=== PATIENT | female | born 1980 | race Caucasian/White ===

== ENCOUNTER 2017-12-13 22:52 | Observation (INO) | payer SELFPAY ==
[2017-12-13] MEDS ORDERED: EPINEPHRINE INJ/PF 1 MG/1 ML AMPULE ONE (22:56)
[2017-12-13] MEDS ORDERED: RACEPINEPHRINE HCL 2.25% NEB 0.5 ML AMPUL NEB ONE ×2 (22:59→23:05)
[2017-12-13] MEDS ORDERED: METHYLPREDNISOLONE INJ 125 MG/2 ML SDV ONE (23:01)
[2017-12-13] MEDS ORDERED: IPRATROPIUM/ALBUTEROL 0.5-2.5 MG/3 ML AMPUL NEB ONE ×2 (23:01→23:05)
[2017-12-13] MEDS ORDERED: FAMOTIDINE INJ/PF 20 MG/2 ML SDV IV ONE ×2 (23:01→23:03)
[2017-12-13] MEDS ORDERED: DIPHENHYDRAMINE HCL 50 MG/ML VIAL ONE (23:02)
[2017-12-13] MEDS ORDERED: METHYLPREDNISOLONE INJ 125 MG/2 ML SDV IV ONE (23:03)
[2017-12-13] MEDS ORDERED: EPINEPHRINE INJ/PF 1 MG/1 ML AMPULE IM ONE (23:03)
--- NOTE | 2017-12-13 23:03 | ER Document Report ---
ED General - General Mode of Arrival: Wheelchair Information source: Patient TRAVEL OUTSIDE OF THE [place] IN LAST 30 DAYS: No <BRADFORD DAVILA - Last Filed: 12/14/17 01:02> <ROLA LOYOLA - Last Filed: 12/14/17 01:22> - General Stated Complaint: ALLERGIC REACTION/RASH Time Seen by Provider: 12/13/17 23:03 Notes: Patient is a 37 year old female presenting to the emergency department due to an allergic reaction. Patient states she was at a restaurant [employer] where she ate Tilapia and a small piece of flounder. She states approximately 15 minutes prior to arrival she became itchy, her throat began to swell and she had difficulty swallowing. She states she has never had a reaction to eating Tilapia before. Patient denies a history of COPD or asthma. (BRADFORD DAVILA) - Related Data Allergies/Adverse Reactions: No Known Allergies Allergy (Verified 09/26/11 15:06) Past Medical History - General Information source: Patient - Social History Smoking Status: Current Every Day Smoker Cigarette use (# per day): Yes Chew tobacco use (# tins/day): No Smoking Education Provided: No Frequency of alcohol use: Occasional Family History: Reviewed & Not Pertinent - Immunizations Hx Diphtheria, Pertussis, Tetanus Vaccination: Yes <BRADFORD DAVILA - Last Filed: 12/14/17 01:02> Review of Systems - Review of Systems Constitutional: No symptoms reported EENT: No symptoms reported Cardiovascular: No symptoms reported Respiratory: See HPI Gastrointestinal: No symptoms reported Genitourinary: No symptoms reported Female Genitourinary: No symptoms reported Musculoskeletal: No symptoms reported Skin: No symptoms reported Hematologic/Lymphatic: No symptoms reported Neurological/Psychological: No symptoms reported -: Yes All other systems reviewed and negative <BRADFORD DAVIAL - Last Filed: 12/14/17 01:02> Physical Exam <BRADFORD DAVILA - Last Filed: 12/14/17 01:02> <ROLA LOYOLA - Last Filed: 12/14/17 01:22> - Notes Notes: GENERAL: Alert, interacts well. Severe distress. HEAD: Normocephalic, atraumatic. EYES: Pupils equal, round, and reactive to light. Extraocular movements intact. ENT: Oral mucosa moist, tongue midline. Uvula and soft palate edematous. NECK: Full range of motion. Supple. Trachea midline. LUNGS: Wheezing. Tahcypneic. HEART: Regular rate and rhythm. No murmurs, gallops, or rubs. ABDOMEN: Soft, non-tender. Non-distended. Bowel sounds present in all 4 quadrants. EXTREMITIES: Moves all 4 extremities spontaneously. No edema, radial and dorsalis pedis pulses 2/4 bilaterally. No cyanosis. NEUROLOGICAL: Alert and oriented x3. Normal speech. PSYCH: Normal affect, normal mood. SKIN: Warm, flushed, urticaria. (BRADFORD DAVILA) Course - Laboratory Result Diagrams: 12/13/17 23:30 12/13/17 23:30 <BRADFORD DAVILA - Last Filed: 12/14/17 01:02> - Laboratory Result Diagrams: 12/13/17 23:30 12/13/17 23:30 - Diagnostic Test Radiology reviewed: Reports reviewed <ROLA LOYOLA - Last Filed: 12/14/17 01:22> - Re-evaluation Re-evalutation: 12/13/17 23:18 Speech and urticaria improving, still with edema of OP. 12/14/17 00:02 FLushing resloved. OP improved slightly. 12/14/17 00:36 Improving. 12/14/17 01:00 Patient is much improved but still with some swelling of her oropharynx. When she falls asleep oxygenation is 92%. Given that patient has had persistent symptoms despite epinephrine and medications, and it is 3 hours out from her allergic reaction, we will keep her for observation to ensure full recovery. Patient and family are agreeable to this plan. Stable at the time of admission to the hospital service. (ROLA LOYOLA) - Laboratory Laboratory results interpreted by me: 12/13/17 12/13/17 23:30 23:30 Seg Neuts % (Manual) 40 L Lymphocytes % (Manual) 55 H Potassium 3.3 L Glucose 127 H Critical Care Note - Critical Care Note Total time excluding time spent on procedures (mins): 60 - Evaluation and management of anaphylactic reaction with multiple re-evaluations, administration of medications, consultation with hospitalist, counseling patient and family <ROLA LOYOLA - Last Filed: 12/14/17 01:22> Discharge <BRADFORD DAVILA - Last Filed: 12/14/17 01:02> - Discharge Admitting Provider: [place] [facility] Admitted: Telemetry <ROLA LOYOLA - Last Filed: 12/14/17 01:22> - Discharge Clinical Impression: Anaphylactic reaction Qualifiers: Encounter type: initial encounter Qualified Code(s): T78.2XXA - Anaphylactic shock, unspecified, initial encounter Condition: Stable Disposition: ADMITTED OBSERVATION Scribe Attestation: 12/14/17 01:22 I personally performed the services described in the documentation, reviewed and edited the documentation which was dictated to the scribe in my presence, and it accurately records my words and actions. (ROLA LOYOLA) Scribe Documentation - Scribe Written by Scribe:: Imer Holt, 12/13/2017 23:28 acting as scribe for :: Jennifer <BRADFORD DAVILA - Last Filed: 12/14/17 01:02>
[2017-12-13] MEDS ORDERED: DIPHENHYDRAMINE HCL 50 MG/ML VIAL IV ONE (23:04)
[2017-12-13] MEDS ORDERED: NORMAL SALINE 1000 ML 1,000 ML IV ONE (23:04)
--- NOTE | 2017-12-13 23:32 | RADIOLOGY REPORT (SQ) ---
EXAM DESCRIPTION: XR CHEST 1 VIEW COMPLETED DATE/TME: 12/13/2017 00:00 CLINICAL HISTORY: 37 years Female, SOB COMPARISON: None. NUMBER OF VIEWS/TECHNIQUE: 1/AP FINDINGS: Adequate lung volume, clear parenchyma, normal cardiac silhouette, and intact bony thorax. IMPRESSION: No acute cardiopulmonary findings.
[2017-12-13 23:45] LABS: HEMATOCRIT 38.3 % (36.0-47.0); HEMOGLOBIN 12.9 g/dL (12.0-15.5); MEAN CORPUSCULAR HEMOGLOBIN 31.6 pg (27.0-33.4); MEAN CORPUSCULAR HGB CONC 33.8 g/dL (32.0-36.0); MEAN CORPUSCULAR VOLUME 93 fl (80-97); PLATELET COUNT 256 10^3/uL (150-450); RED BLOOD COUNT 4.09 10^6/uL (3.72-5.28); WHITE BLOOD COUNT 8.3 10^3/uL (4.0-10.5)
[2017-12-13 23:57] LABS: ANION GAP 10 (5-19); BLOOD UREA NITROGEN 15 mg/dL (7-20); CALCIUM 9.2 mg/dL (8.4-10.2); CARBON DIOXIDE 26 mmol/L (22-30); CHLORIDE 105 mmol/L (98-107); GLUCOSE 127 mg/dL (75-110); POTASSIUM 3.3 mmol/L (3.6-5.0); SODIUM 140.7 mmol/L (137-145)
[2017-12-14 00:11] LABS: ABSOLUTE LYMPHOCYTES# (MANUAL) 4.6 10^3/uL (0.5-4.7); ABSOLUTE MONOCYTES # (MANUAL) 0.3 10^3/uL (0.1-1.4); ABSOLUTE NEUTROPHILS# (MANUAL) 3.3 10^3/uL (1.7-8.2); ANISOCYTOSIS SLIGHT; BASOPHILS % (MANUAL) 0 % (0-2); EOSINOPHILS % (MANUAL) 1 % (0-6); LYMPHOCYTES % (MANUAL) 55 % (13-45); MONOCYTES % (MANUAL) 4 % (3-13); SEGMENTED NEUTROPHILS % (MAN) 40 % (42-78); TOTAL CELLS COUNTED 100
[2017-12-14 00:12] LABS: PLATELET COMMENT ADEQUATE
[2017-12-14] MEDS ORDERED: IPRATROPIUM/ALBUTEROL 0.5-2.5 MG/3 ML AMPUL NEB PRN (01:06)
[2017-12-14] MEDS ORDERED: ACETAMINOPHEN 325 MG TABLET PO PRN (01:06)
[2017-12-14] MEDS ORDERED: ONDANSETRON HCL INJ/PF 4 MG/2 ML SDV IV PRN (01:06)
[2017-12-14] MEDS ORDERED: NORMAL SALINE 1000 ML 1,000 ML IV PRN (01:08)
[2017-12-14] MEDS ORDERED: DIPHENHYDRAMINE HCL 50 MG/ML VIAL IV ONE (01:30)
[2017-12-14] MEDS ORDERED: IPRATROPIUM/ALBUTEROL 0.5-2.5 MG/3 ML AMPUL NEB SCH (02:00)
[2017-12-14] MEDS: IPRATROPIUM/ALBUTEROL 0.5-2.5 MG/3 ML AMPUL NEB SCH ×4 (02:37→14:17)
[2017-12-14] MEDS: POTASSI CL 20 MEQ/50 ML RIDER 20 MEQ/50 ML RTUPB IV SCH ×2 (03:35→09:40)
[2017-12-14] MEDS: METHYLPREDNISOLONE INJ 125 MG/2 ML SDV IV SCH ×2 (05:22→12:57)
[2017-12-14] MEDS ORDERED: HEPARIN SOD (PORCINE) 5,000 UNIT/ML 1 ML SYRINGE SUBCUT SCH (06:00)
[2017-12-14 06:33] LABS: ANION GAP 12 (5-19); BLOOD UREA NITROGEN 13 mg/dL (7-20); CALCIUM 8.6 mg/dL (8.4-10.2); CARBON DIOXIDE 21 mmol/L (22-30); CHLORIDE 111 mmol/L (98-107); GLUCOSE 156 mg/dL (75-110); POTASSIUM 3.8 mmol/L (3.6-5.0); SODIUM 143.6 mmol/L (137-145)
--- NOTE | 2017-12-14 06:43 | PDOC H&P ---
History of Present Illness Admission Date/PCP: 12/14/17 01:11 Patient complains of: Rash and shortness of breath History of Present Illness: MADDIE BALLESTEROS is a 37 year old female with a past medical history of tobacco dependence presenting with allergic reaction 15 minutes after eating tilapia. She developed itching, throat swelling, difficulty swallowing and shortness of breath. She receives racemic epinephrine, albuterol, Benadryl, Pepcid and Solu-Medrol. She is improved significantly but has a persistent rash of the torso. She is referred to the hospitalist for admission. She denies previous food allergies. She denies recent new medication. Past Medical History Medical History: None Psychiatric Medical History: Reports: Tobacco Dependency Social History Information Source: Patient, [facility] Records Smoking Status: Current Every Day Smoker Last Time Smoked: 12/14/17 Frequency of Alcohol Use: Occasional Drugs: None - Advance Directive Resuscitation Status: Full Code Family History Family History: COPD Parental Family History Reviewed: Yes Children Family History Reviewed: Yes Sibling(s) Family History Reviewed.: Yes Medication/Allergy Home Medications: No Home Medications 1 09/26/11 Oxycodone HCl/Acetaminophen [Percocet 10-325 Mg Tablet] 1 each PO Q4HP PRN #20 tablet 09/26/11 Hydrocodone/Acetaminophen [[place] 7.5-325 mg Tablet] 1 tab PO Q6 PRN #15 tablet 02/15/17 Allergies/Adverse Reactions: Fish Containing Products Adverse Reaction (Verified 12/14/17 03:42) Penicillins Adverse Reaction (Verified 12/14/17 03:40) generalized swelling Review of Systems Constitutional: ABSENT: chills, fever(s), headache(s), weight gain, weight loss Eyes: ABSENT: visual disturbances Ears: ABSENT: hearing changes Cardiovascular: ABSENT: chest pain, dyspnea on exertion, edema, orthropnea, palpitations Respiratory: ABSENT: cough, hemoptysis Gastrointestinal: ABSENT: abdominal pain, constipation, diarrhea, hematemesis, hematochezia, nausea, vomiting Genitourinary: ABSENT: dysuria, hematuria Musculoskeletal: ABSENT: joint swelling Integumentary: ABSENT: rash, wounds Neurological: ABSENT: abnormal gait, abnormal speech, confusion, dizziness, focal weakness, syncope Psychiatric: ABSENT: anxiety, depression, homidical ideation, suicidal ideation Endocrine: ABSENT: cold intolerance, heat intolerance, polydipsia, polyuria Hematologic/Lymphatic: ABSENT: easy bleeding, easy bruising Physical Exam Vital Signs: Temp Pulse Resp BP Pulse Ox 98.3 F 91 17 120/61 97 12/14/17 03:14 12/14/17 03:14 12/14/17 03:14 12/14/17 03:14 12/14/17 03:14 Intake & Output 12/12/17 12/13/17 12/14/17 11:59 11:59 11:59 Intake Total 320 Balance 320 Weight 96.5 kg General appearance: PRESENT: cooperative, mild distress. ABSENT: disheveled, hard of hearing, severe distress Head exam: PRESENT: atraumatic, normocephalic Eye exam: PRESENT: conjunctiva pink, EOMI, PERRLA. ABSENT: scleral icterus Ear exam: PRESENT: normal external ear exam Mouth exam: PRESENT: moist, tongue midline, other - Pharyngeal edema Teeth exam: PRESENT: poor dentation Throat exam: PRESENT: post pharyngeal erythema Neck exam: ABSENT: carotid bruit, JVD, lymphadenopathy, thyromegaly Respiratory exam: PRESENT: clear to auscultation low. ABSENT: rales, rhonchi, wheezes Cardiovascular exam: PRESENT: +S1, +S2, tachycardia Pulses: PRESENT: normal dorsalis pedis pul Vascular exam: PRESENT: normal capillary refill GI/Abdominal exam: PRESENT: normal bowel sounds, soft. ABSENT: distended, guarding, mass, organolmegaly, rebound, tenderness Rectal exam: PRESENT: deferred Extremities exam: PRESENT: full ROM. ABSENT: calf tenderness, clubbing, pedal edema Neurological exam: PRESENT: alert, awake, oriented to person, oriented to place , oriented to time, oriented to situation, CN II-XII grossly intact. ABSENT: motor sensory deficit Psychiatric exam: PRESENT: appropriate affect, normal mood. ABSENT: homicidal ideation, suicidal ideation Skin exam: PRESENT: dry, intact, warm. ABSENT: cyanosis, rash Results Laboratory Results: 12/14/17 05:42 12/14/17 05:42 Sodium 143.6 Potassium 3.8 Chloride 111 H Carbon Dioxide 21 L Anion Gap 12 BUN 13 Creatinine 0.65 Est GFR ( Amer) > 60 Est GFR (Non-Af Amer) > 60 Glucose 156 H Calcium 8.6 Impressions: Chest X-Ray 12/13/17 00:00 IMPRESSION: No acute cardiopulmonary findings. Assessment & Plan - Diagnosis (1) Anaphylactic reaction Qualifiers: Encounter type: initial encounter Qualified Code(s): T78.2XXA - Anaphylactic shock, unspecified, initial encounter Is this a current diagnosis for this admission?: Yes Plan: Telemetry observation for rebound, continue Solu-Medrol, Pepcid, Benadryl and epinephrine as needed (2) Tobacco abuse Is this a current diagnosis for this admission?: Yes Plan: Tobacco Dependence patient received tobacco cessation counseling and offered nicotine replacement options - Time Time Spent: 30 to 50 Minutes
--- NOTE | 2017-12-14 11:54 | PDOC DISCHARGE SUMMARY ---
General - Admit/Disc Date/PCP Admission Date/Primary Care Provider: 12/14/17 01:11 Discharge Date: 12/14/17 - Discharge Diagnosis (1) Anaphylactic reaction Is this a current diagnosis for this admission?: Yes (2) Tobacco abuse Is this a current diagnosis for this admission?: Yes - Additional Information Resuscitation Status: Full Code Discharge Diet: As Tolerated, Other (Comments) - avoid fish Discharge Activity: Activity As Tolerated Prescriptions: Epinephrine [Epipen 2-Abiel] 0.3 mg IM ONCE PRN #1 ml PRN Reason: Home Medications: Epinephrine [Epipen 2-Abiel] 0.3 mg IM ONCE PRN #1 ml 12/14/17 History of Present Illness History of Present Illness: MADDIE BALLESTEROS is a 37 year old female MADDIE BALLESTEROS is a 37 year old female with a past medical history of tobacco dependence presenting with allergic reaction 15 minutes after eating tilapia. She developed itching, throat swelling, difficulty swallowing and shortness of breath. She receives racemic epinephrine, albuterol, Benadryl, Pepcid and Solu-Medrol. She is improved significantly but has a persistent rash of the torso. She is referred to the hospitalist for admission. She denies previous food allergies. She denies recent new medication. Hospital Course Hospital Course: She received Solu-Medrol Benadryl and Pepcid. When I started this morning she was completely asymptomatic. Rash already resolved. She is not itching. We will discharge her on epinephrine IM injector as needed in case of emergency if this happens again.. We recommend that she follow-up with an bottle cleaner. She should also avoid any fish products. Physical Exam Vital Signs: Temp Pulse Resp BP Pulse Ox 98.3 F 84 14 114/53 L 97 12/14/17 07:28 12/14/17 07:28 12/14/17 07:28 12/14/17 07:28 12/14/17 07:28 Intake & Output 12/13/17 12/14/17 12/15/17 06:59 06:59 06:59 Intake Total 370 Balance 370 Weight 212 lb 11.937 oz General appearance: PRESENT: no acute distress, well-developed, well-nourished Head exam: PRESENT: atraumatic, normocephalic Eye exam: PRESENT: conjunctiva pink, EOMI, PERRLA. ABSENT: scleral icterus Ear exam: PRESENT: normal external ear exam Mouth exam: PRESENT: moist, tongue midline Neck exam: ABSENT: carotid bruit, JVD, lymphadenopathy, thyromegaly Respiratory exam: PRESENT: clear to auscultation low. ABSENT: rales, rhonchi, wheezes Cardiovascular exam: PRESENT: RRR. ABSENT: diastolic murmur, rubs, systolic murmur Pulses: PRESENT: normal dorsalis pedis pul Vascular exam: PRESENT: normal capillary refill GI/Abdominal exam: PRESENT: normal bowel sounds, soft. ABSENT: distended, guarding, mass, organolmegaly, rebound, tenderness Rectal exam: PRESENT: deferred Extremities exam: PRESENT: full ROM. ABSENT: calf tenderness, clubbing, pedal edema Neurological exam: PRESENT: alert, awake, oriented to person, oriented to place , oriented to time, oriented to situation, CN II-XII grossly intact. ABSENT: motor sensory deficit Psychiatric exam: PRESENT: appropriate affect, normal mood. ABSENT: homicidal ideation, suicidal ideation Results Laboratory Results: 12/14/17 05:42 12/14/17 05:42 Sodium 143.6 Potassium 3.8 Chloride 111 H Carbon Dioxide 21 L Anion Gap 12 BUN 13 Creatinine 0.65 Est GFR ( Amer) > 60 Est GFR (Non-Af Amer) > 60 Glucose 156 H Calcium 8.6 Impressions: Chest X-Ray 12/13/17 00:00 IMPRESSION: No acute cardiopulmonary findings. Qualifiers - * PATIENT BEING DISCHARGED WITH ANY OF THE FOLLOWING DIAGNOSIS: No
[2017-12-14 14:10] VITALS: BP 120/61
[2017-12-15] MEDS ORDERED: FAMOTIDINE INJ/PF 20 MG/2 ML SDV IV ONE (10:00)
== END 2017-12-14 14:15 | disposition home or self-care (01) ==
LOC: ER 22:52 → EH 12-14 01:11 → 4S 12-14 03:10
PROVIDERS: ADMIT Internal Medicine; ATTEND Internal Medicine
DX: T78.03XA Anaphylactic reaction due to other fish, initial encounter (principal); F17.210 Nicotine dependence, cigarettes, uncomplicated; R06.02 Shortness of breath; Z82.5 Family history of asthma and other chronic lower respiratory diseases
CPT/HCPCS: 94640 ×3; 99291; 96372; 96361; 96374; 96375; 36415 ×2; 84703; 85025; 80048 ×2; 71045; G0378 ×2; J1644; J1200; J0171; J2930 ×2; J3480; J7030; S0028; J3490; J7620 ×2